=== PATIENT | female | born 1950 | race Hispanic/Latino ===

== ENCOUNTER 2025-04-24 18:07 | Emergency (ER) | payer MEDICARE ==
[2025-04-24] MEDS ORDERED: Bacitracin 1 PK ONE (19:26)
== END 2025-04-24 20:00 | disposition home or self-care (01) ==
LOC: MADERS 18:07
DX: S81.812A Laceration without foreign body, left lower leg, initial encounter (principal); M25.552 Pain in left hip; E03.9 Hypothyroidism, unspecified; Z79.899 Other long term (current) drug therapy; Z79.890 Hormone replacement therapy; Z79.82 Long term (current) use of aspirin; Z79.2 Long term (current) use of antibiotics; W19.XXXA Unspecified fall, initial encounter; Y92.009 Unspecified place in unspecified non-institutional (private) residence as the place of occurrence of the external cause
CPT/HCPCS: 99283